=== PATIENT | male | born 1990 | race Caucasian/White ===

== ENCOUNTER 2017-06-27 14:50 | Emergency (ER) | payer BC ==
[2017-06-27 15:35] VITALS: BP 145/84
--- NOTE | 2017-06-27 16:18 | UC ---
UC General HPI - HPI Summary HPI Summary: patient is concerned about body aches and fatigue that he may have Lyme. Patient educated regarding the work up for fatigue is more complex and patient will need follow up - History of Current Complaint Chief Complaint: UCGeneralIllness Stated Complaint: WANTS LYME TEST Time Seen by Provider: 06/27/17 16:16 Hx Obtained From: Patient Onset/Duration: Gradual Onset, Lasting Days Timing: Constant Onset Severity: Mild Current Severity: Mild - Allergy/Home Medications Allergies/Adverse Reactions: Allergies Allergy/AdvReac Type Severity Reaction Status Date / Time No Known Allergies Allergy Verified 06/27/17 15:35 PMH/Surg Hx/FS Hx/Imm Hx Previously Healthy: Yes - Surgical History Surgical History: Yes Surgery Procedure, Year, and Place: Pylonidal Cyst 2012 - Family History Known Family History: Positive: None - Social History Occupation: Employed Full-time Lives: With Family Alcohol Use: Weekly Substance Use Type: Marijuana Smoking Status (MU): Former Smoker Type: Cigarettes Amount Used/How Often: 3-4 cigs per day Length of Time of Smoking/Using Tobacco: 2 years Have You Smoked in the Last Year: Yes Household Exposure Type: Cigarettes - Immunization History Most Recent Tetanus Shot: UTD Review of Systems Constitutional: Negative Skin: Negative Eyes: Negative ENT: Negative Respiratory: Negative Cardiovascular: Negative Gastrointestinal: Negative Genitourinary: Negative Motor: Negative Neurovascular: Negative Musculoskeletal: Negative Neurological: Negative Psychological: Negative All Other Systems Reviewed And Are Negative: Yes Physical Exam Triage Information Reviewed: Yes Appearance: Well-Appearing, No Pain Distress, Well-Nourished Vital Signs: Initial Vital Signs Temp 98.0 F 06/27/17 15:31 Pulse 63 06/27/17 15:31 Resp 18 06/27/17 15:31 BP 145/84 06/27/17 15:31 Pulse Ox 100 06/27/17 15:31 Vital Signs Reviewed: Yes Eye Exam: Normal Eyes: Positive: Conjunctiva Clear ENT Exam: Normal ENT: Positive: Normal ENT inspection, Hearing grossly normal. Negative: Nasal congestion, Nasal drainage, Trismus, Muffled/hoarse voice Dental Exam: Normal Neck exam: Normal Neck: Positive: Supple, Nontender Respiratory Exam: Normal Respiratory: Positive: Chest non-tender, Lungs clear, No accessory muscle use Cardiovascular Exam: Normal Cardiovascular: Positive: RRR, Pulses Normal, Brisk Capillary Refill Musculoskeletal Exam: Normal Musculoskeletal: Positive: Strength Intact, ROM Intact, No Edema Neurological Exam: Normal Neurological: Positive: Alert, Muscle Tone Normal Psychological Exam: Normal Skin Exam: Normal Course/Dx - Course Course Of Treatment: lyme test follow with pcp for comprehensive evaluation of fatigue - Differential Dx - Multi-Symptom Differential Diagnoses: Metabolic Abnormality, Sepsis, Other - fatigue Provider Diagnoses: Fatigue Discharge - Discharge Plan Condition: Stable Disposition: HOME Patient Education Materials: Lyme Disease (ED), Fatigue (ED) Referrals: [facility] [Outside] - 5 Days Additional Instructions: We are recommending you follow with a primary care provider for a full evaluation of fatigue and muscle aches. Lyme is just one possibility--If you test comes back positive we will call in antibiotics for you
--- NOTE | 2017-06-29 17:44 | UC ---
Progress - Progress Note Progress Note: please call pt and inform of neg lyme test. this does not rule out lyme. f/u with pcp for recheck in 7-14 days.
== END 2017-06-27 16:47 | disposition home or self-care (01) ==
LOC: UCEAST 14:50
DX: R53.83 Other fatigue (principal); M79.1 Myalgia; F12.90 Cannabis use, unspecified, uncomplicated; Z87.891 Personal history of nicotine dependence
CPT/HCPCS: 86618; 99211; G0463

== ENCOUNTER 2019-01-27 11:55 | Emergency (ER) | payer SELFPAY ==
[2019-01-27 13:31] VITALS: BP 140/93
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
== END 2019-01-27 13:31 | disposition home or self-care (01) ==
LOC: ED 11:55
DX: M25.512 Pain in left shoulder (principal); F17.210 Nicotine dependence, cigarettes, uncomplicated
CPT/HCPCS: 99282